=== PATIENT | female | born 1935 | race Caucasian/White ===

== ENCOUNTER 2019-05-02 09:09 | Observation (INO) ==
[2019-05-02] MEDS ORDERED: 0.9 % Sodium Chloride 1,000 ML IVC ONE (09:28)
[2019-05-02] MEDS ORDERED: Orphenadrine 60 MG/2 ML VIAL IM ONE (09:30)
[2019-05-02] MEDS ORDERED: *HR* FentaNYL (PF) 100 MCG/2 ML VIAL IVP ONE (09:30)
--- NOTE | 2019-05-02 09:32 | Emergency Department Note ---
Disposition Clinical Impression: Hypokalemia, Hypomagnesemia, Neck pain Fall Qualifiers: Encounter type: initial encounter Qualified Code(s): W19.XXXA - Unspecified fal l, initial encounter Disposition: Admitted As Inpatient Condition: Good Time of Disposition: 12:15 General Adult HPI - General Chief complaint: ED Fall Stated complaint: Fall, neck pain Time Seen by Provider: 05/02/19 09:16 - History of Present Illness Pain Scale: 7 - Related Data Allergies Allergy/AdvReac Type Severity Reaction Status Date / Time Sulfa (Sulfonamide AdvReac Rash Verified 06/10/15 08:57 Antibiotics) Past Medical History - Past Medical History Medical history: Reports: GERD, hypertension - Social History Smoking Status: Never smoker Smokeless Tobacco Status: Yes Alcohol use: Reports: none Drug use: Reports: none Course Vital Signs Temperature 98.7 F 05/02/19 09:12 Pulse Rate 75 05/02/19 09:12 Respiratory Rate 18 05/02/19 09:12 Blood Pressure 148/74 05/02/19 09:12 O2 Sat by Pulse Oximetry 97 05/02/19 09:12 Temperature 98.7 F 05/02/19 09:55 Pulse Rate 75 05/02/19 09:55 Respiratory Rate 18 05/02/19 09:55 Blood Pressure 148/74 05/02/19 09:55 O2 Sat by Pulse Oximetry 97 05/02/19 09:55 Oxygen Delivery Oxygen Delivery Room Air Medical Decision Making - Lab Data Result diagrams: 05/02/19 09:37 05/02/19 09:37 Lab Results 05/02/19 05/02/19 Range/Units 09:37 09:37 WBC 13.3 H (4.3-11.1) K/mcL RBC 4.18 (3.82-4.97) M/mcL Hgb 12.0 (11.5-15.4) g/dL Hct 36.6 (35.3-44.9) % MCV 87.6 (83.0-100.0) fL MCH 28.7 (28.0-33.3) pg MCHC 32.8 (31.6-35.5) g/dL RDW 12.1 (11.5-14.5) % Plt Count 289 (140-400) K/mcL MPV 10.2 (9.4-12.4) fL Immature Gran % 0.2 (0-4) % Seg Neutrophils % 74.7 % Lymphocytes % 10.0 % Monocytes % 14.5 % Eosinophils % 0.3 % Basophils % 0.3 % Neutrophils # 9.9 H (1.6-8.9) K/mcL Lymphocytes # 1.3 (0.6-4.6) K/mcL Monocytes # 1.9 H (0.0-1.3) K/mcL Eosinophils # 0.0 (0.0-0.6) K/mcL Basophils # 0.0 (0.0-0.2) K/mcL Sodium 132 L (136-145) mEq/L Potassium 2.9 L (3.5-5.1) mEq/L Chloride 94 L (98-107) mEq/L Carbon Dioxide 29 (23-29) mEq/L BUN 11 (8-23) mg/dL Creatinine 0.81 (0.60-1.20) mg/dL Est GFR ( Amer) > 60 (> 60) Est GFR (Non-Af Amer) > 60 (> 60) BUN/Creatinine Ratio 14 (6-26) Glucose 108 H (70-105) mg/dL Calculated Osmolality 274 L (280-300) Calcium 8.7 (8.6-10.3) mg/dL Magnesium 1.5 L (1.6-2.6) mg/dL Total Bilirubin 1.0 (0.3-1.0) mg/dL AST 26 (13-39) Units/L ALT 14 (7-52) Units/L Alkaline Phosphatase 72 (34-104) Units/L Troponin I 0.03 (< 0.04) ng/mL Serum Total Protein 6.8 (6.4-8.9) g/dL Albumin 3.7 (3.5-5.7) g/dL Globulin 3.1 (2.4-3.5) g/dL Albumin/Globulin Ratio 1.2 (1.1-2.2) - Radiology Data Radiology results reviewed: Yes I reviewed the patient's radiology results. Chest X-Ray 05/02/19 09:50 IMPRESSION: Mild left basilar atelectasis. No focal consolidation. D/ / Destiny Briscoe MD / Destiny Briscoe MD Interpreting Provider: Destiny Briscoe MD Head CT 05/02/19 10:42 IMPRESSION: No acute intracranial abnormality. D/ / Javy Jeffries MD / Javy Jeffries MD Interpreting Provider: Javy Jeffries MD Cervical Spine CT 05/02/19 10:44 IMPRESSION: No acute abnormality of the cervical spine. Severe cervical spondylosis. Moderate degenerative spondylolisthesis of C7 on T1. Multiple bilateral foraminal stenoses. 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 D/ / Kendell Arauz MD / Kendell Arauz MD Interpreting Provider: Kendell Arauz MD Thoracic Spine CT 05/02/19 10:50 IMPRESSION: No acute compression fracture. Remote appearing anterior wedge compression fracture T10. Thoracic spondylosis. Grade 1 anterolisthesis C7-T1. RECOMMENDATIONS: If there is further concern for infection, nerve root compression or disc herniation correlation to MRI imaging would be recommended. D/ / 05/02/2019 11:35:29 Javy Jeffries MD / [facility] Interpreting Provider: Javy Jeffries MD Abdomen/Pelvis CT 05/02/19 11:12 IMPRESSION: 1. No acute abdominopelvic abnormality within limitations of a noncontrast study. 2. Gas and stool throughout the colon. Clinical correlation for constipation. 3. No acute osseous abnormality in the lumbar spine. Severe T12-L1 and L5-S1 degenerative disc disease and advanced lower lumbar spine facet joint degenerative changes. 4. Age-indeterminate T10 vertebral body compression deformity. This is new from 06/08/2016 CT. If there is point tenderness at this level, then MRI should be considered. D/ / 05/02/2019 11:47:15 Sher Lr MD / [facility] Interpreting Provider: Sher Lr MD Lumbar Spine CT 05/02/19 11:12 IMPRESSION: 1. No acute abdominopelvic abnormality within limitations of a noncontrast study. 2. Gas and stool throughout the colon. Clinical correlation for constipation. 3. No acute osseous abnormality in the lumbar spine. Severe T12-L1 and L5-S1 degenerative disc disease and advanced lower lumbar spine facet joint degenerative changes. 4. Age-indeterminate T10 vertebral body compression deformity. This is new from 06/08/2016 CT. If there is point tenderness at this level, then MRI should be considered. D/ 05/02/2019 11:47:15 Sher Lr MD / [facility] Interpreting Provider: Sher Lr MD Attestation Statement - Attestation Attestation: Sacha Quintanilla D.O., examined this patient and my medical decision-making was reviewed with the Resident Physician. I agree with the documented findings, disposition and treatment plan as described except to the extent set forth below. This is an 84-year-old female who presents via EMS with a complaint of fall. The patient had a fall yesterday. She tells me that she remembers she is not sure why she fell. She has had diarrhea for 10 days now in total. Has seen her primary care provider who put her on a medication that she is unsure of. She has had no abdominal pain. States that she has been trying to drink fluids to keep up with it that probably is not getting enough. Due to the fall she has had pain in her neck. No other complaints. General: Alert, no acute distress HENT: Normocephalic, Atraumatic Neck: C-spine immobilized. Midline lower cervical spine tenderness. Cardiovascular: Regular rate and rhythm. No appreciable murmurs Respiratory: Lungs CTAB. No wheezing/rhonchi Abdominal: Soft, non tender. No peritoneal findings Extremities: No peripheral edema Neuro: Alert, Mentating appropriately, No focal deficits Skin: Warm, Dry Plan: CT imaging of the head, spine, abdomen and pelvis given her diarrhea. We will check baseline labs due to the amount of her diarrhea as well. ED Procedure Note: EKG interpretation - I agree with the resident physician's documentation and interpretation of the patient's EKG. Sinus rhythm with a rate of 71 beats per minute. Normal axis. QTc 491. Normal R wave progression. No gross ST elevations or depressions. No acute ischemic findings. CT without acute fractures. Abdominal CT without acute findings. Labs demonstrate what is likely been a prolonged course of diarrhea with hypomagnesemia and hypokalemia. Her QTC is 491. Magnesium and potassium were repeated. Patient received IV fluids as well. C-spine cleared. Discussed with patient and agreeable with admission for dehydration, weakness, abnormal electrolytes.
[2019-05-02 10:00] LABS: Basophils % 0.3 %; Eosinophils % 0.3 %; Hematocrit 36.6 % (35.3-44.9); Immature Granulocytes % 0.2 % (0-4); Lymphocytes # 1.3 K/mcL (0.6-4.6); Mean Corpuscular HGB Conc 32.8 g/dL (31.6-35.5); Mean Corpuscular Hemoglobin 28.7 pg (28.0-33.3); Mean Corpuscular Volume 87.6 fL (83.0-100.0); Mean Platelet Volume 10.2 fL (9.4-12.4); Monocytes # 1.9 K/mcL (0.0-1.3); Monocytes % 14.5 %; Neutrophils # 9.9 K/mcL (1.6-8.9); Platelet Count 289 K/mcL (140-400); Red Blood Count 4.18 M/mcL (3.82-4.97); Red Cell Distribution Width 12.1 % (11.5-14.5); Segmented Neutrophils % 74.7 %; White Blood Count 13.3 K/mcL (4.3-11.1)
[2019-05-02 10:12] LABS: Alanine Aminotransferase 14 Units/L (7-52); Albumin 3.7 g/dL (3.5-5.7); Albumin/Globulin Ratio 1.2 (1.1-2.2); Alkaline Phosphatase 72 Units/L (34-104); Aspartate Amino Transferase 26 Units/L (13-39); BUN/Creatinine Ratio 14 (6-26); Blood Urea Nitrogen 11 mg/dL (8-23); Calcium 8.7 mg/dL (8.6-10.3); Carbon Dioxide 29 mEq/L (23-29); Chloride 94 mEq/L (98-107); Globulin 3.1 g/dL (2.4-3.5); Glucose 108 mg/dL (70-105); Magnesium 1.5 mg/dL (1.6-2.6); Osmolality,Calculated 274 (280-300); Potassium 2.9 mEq/L (3.5-5.1); Sodium 132 mEq/L (136-145); Total Protein 6.8 g/dL (6.4-8.9); Troponin I 0.03 ng/mL (< 0.04); eGFR For African Americans > 60 (> 60); eGFR For Non-African Americans > 60 (> 60)
[2019-05-02] MEDS ORDERED: Potassium Chloride Elixir 20 MEQ/15 ML UDC PO ONE (10:15)
--- NOTE | 2019-05-02 10:18 | Emergency Department Note ---
Disposition Clinical Impression: Hypokalemia, Hypomagnesemia, Neck pain Fall Qualifiers: Encounter type: initial encounter Qualified Code(s): W19.XXXA - Unspecified fal l, initial encounter Disposition: Admitted As Inpatient Condition: Good Referrals: Juan Ramsay MD [Primary Care Provider] - Forms: ED Satisfaction Letter Time of Disposition: 12:15 General Adult HPI - General Chief complaint: ED Fall Stated complaint: Fall, neck pain Time Seen by Provider: 05/02/19 09:16 Source: patient, family Mode of arrival: wheelchair Limitations: no limitations Nursing Notes Reviewed: Yes Vital Signs Reviewed: Yes - History of Present Illness HPI Narrative: 84-year-old female with significant past medical history of hypertension presenting to the emergency department chief complaint of fall and neck pain. According to family members at bedside patient fell approximately 2 days ago. They describe a fall as her legs giving out from underneath her. She denies hitting her head that sent has had severe neck and back pain. She denies any numbness or tingling or generalized weakness. She denies any chest pain, shortness of breath or recent fevers. She does state that for the past 10 days she has had loose, watery, foul-smelling stools. She is followed up with her primary care physician who prescribed her an Antidiarrheal medication with minimal to no relief. She states she does have a GI follow-up but it is not for 3 more weeks. Pain Scale: 7 - Related Data Allergies Allergy/AdvReac Type Severity Reaction Status Date / Time Sulfa (Sulfonamide AdvReac Rash Verified 06/10/15 08:57 Antibiotics) All systems ED: reviewed and negative except as stated. Constitutional: Denies: fever Eyes: Reports: as per HPI ENT ED: Reports: as per HPI Cardiovascular: Denies: chest pain Respiratory: Denies: dyspnea Gastrointestinal: Reports: diarrhea Genitourinary: Reports: as per HPI Musculoskeletal: Reports: neck pain Integumentary: Denies: abrasion Neurological: Denies: numbness, paresthesias Psychiatric: Reports: as per HPI Endocrine: Reports: as per HPI Hematological/Lymphatic: Reports: as per HPI Allergic/Immunologic: Reports: as per HPI Past Medical History - Past Medical History Attestation: Yes The following information was validated with the patient. Medical history: Reports: GERD, hypertension - Social History Smoking Status: Never smoker Smokeless Tobacco Status: Yes Alcohol use: Reports: none Drug use: Reports: none Physical Exam - General Limitations: no limitations General appearance: alert, in no apparent distress - Head Head exam: atraumatic, normocephalic, normal inspection - Eye Eye exam: Present: EOMI. Absent: scleral icterus - ENT ENT exam: mucous membranes moist - Neck Neck exam: Present: tenderness (paracervical spinal muscle tenderness, no midline tenderness) - Chest Chest inspection: Present: symmetric chest wall rise. Absent: tenderness - Respiratory Respiratory exam: Present: normal lung sounds bilaterally. Absent: respiratory distress, wheezes - Cardiovascular Cardiovascular exam: Present: regular rate, normal rhythm, normal heart sounds - Abdominal Exam Abdominal exam: Present: soft, Non-Tender. Absent: distention, guarding, rebound - Extremities Exam Extremities exam: Present: full ROM - Back Exam Back exam: Absent: tenderness - Neurological Exam Neurological exam: Present: alert, oriented X3 - Psychiatric Psychiatric exam: Present: normal affect, normal mood - Skin Skin exam: Present: warm Course Course Narrative: 84-year-old female presenting after a fall. In the room she is alert and orient ed 3 and hemodynamically stable. Patient has tenderness to the paracervical spinal musculature but no midline tenderness. No focal neurological deficit. Patient does not remember what was going on when she fell therefore we will perform basic laboratory analysis including a troponin and EKG. Due to patient's severe neck pain we will obtain a CT of the head, cervical, thoracic and lumbar spine. Patient has had diarrhea for greater than 10 days therefore we will also perform a CT of the abdomen and pelvis. Disposition pending. Patient agrees with this plan. - Reevaluation(s) Reevaluation #1: Patient's laboratory analysis significant for leukocytosis, hypokalemia at 2.9 and hypomagnesemia 1.5. We will replete these the IV and replete potassium by mouth. CTs completed does not show any fracture or dislocation. Patient's pain significantly better at this time. Due to patient's electronic abnormalities and generalized weakness we will admit her for further treatment and evaluation. Patient remains alert and oriented 3 and hemodynamically stable. Patient agrees with this plan. Vital Signs Temperature 98.7 F 05/02/19 09:12 Pulse Rate 75 05/02/19 09:12 Respiratory Rate 18 05/02/19 09:12 Blood Pressure 148/74 05/02/19 09:12 O2 Sat by Pulse Oximetry 97 05/02/19 09:12 Temperature 98.7 F 05/02/19 09:55 Pulse Rate 75 05/02/19 09:55 Respiratory Rate 18 05/02/19 09:55 Blood Pressure 148/74 05/02/19 09:55 O2 Sat by Pulse Oximetry 97 05/02/19 09:55 Oxygen Delivery Oxygen Delivery Room Air Medical Decision Making - Lab Data Result diagrams: 05/02/19 09:37 05/02/19 09:37 Lab Results 05/02/19 05/02/19 Range/Units 09:37 09:37 WBC 13.3 H (4.3-11.1) K/mcL RBC 4.18 (3.82-4.97) M/mcL Hgb 12.0 (11.5-15.4) g/dL Hct 36.6 (35.3-44.9) % MCV 87.6 (83.0-100.0) fL MCH 28.7 (28.0-33.3) pg MCHC 32.8 (31.6-35.5) g/dL RDW 12.1 (11.5-14.5) % Plt Count 289 (140-400) K/mcL MPV 10.2 (9.4-12.4) fL Immature Gran % 0.2 (0-4) % Seg Neutrophils % 74.7 % Lymphocytes % 10.0 % Monocytes % 14.5 % Eosinophils % 0.3 % Basophils % 0.3 % Neutrophils # 9.9 H (1.6-8.9) K/mcL Lymphocytes # 1.3 (0.6-4.6) K/mcL Monocytes # 1.9 H (0.0-1.3) K/mcL Eosinophils # 0.0 (0.0-0.6) K/mcL Basophils # 0.0 (0.0-0.2) K/mcL Sodium 132 L (136-145) mEq/L Potassium 2.9 L (3.5-5.1) mEq/L Chloride 94 L (98-107) mEq/L Carbon Dioxide 29 (23-29) mEq/L BUN 11 (8-23) mg/dL Creatinine 0.81 (0.60-1.20) mg/dL Est GFR ( Amer) > 60 (> 60) Est GFR (Non-Af Amer) > 60 (> 60) BUN/Creatinine Ratio 14 (6-26) Glucose 108 H (70-105) mg/dL Calculated Osmolality 274 L (280-300) Calcium 8.7 (8.6-10.3) mg/dL Magnesium 1.5 L (1.6-2.6) mg/dL Total Bilirubin 1.0 (0.3-1.0) mg/dL AST 26 (13-39) Units/L ALT 14 (7-52) Units/L Alkaline Phosphatase 72 (34-104) Units/L Troponin I 0.03 (< 0.04) ng/mL Serum Total Protein 6.8 (6.4-8.9) g/dL Albumin 3.7 (3.5-5.7) g/dL Globulin 3.1 (2.4-3.5) g/dL Albumin/Globulin Ratio 1.2 (1.1-2.2) - EKG Data EKG #1 EKG attestation: Yes I reviewed and interpreted this EKG. EKG results narrative: Sinus rhythm. 71 bpm. OK interval 194, QRS 102, QTC 491. No sign of acute ST segment elevation or ischemia. Compared to previous EKG completed on 04/11/2014 no significant changes noted Attestation Statement - Attestation Attestation: Sacha Quintanilla D.O., examined this patient and my medical decision-making was reviewed with the Resident Physician. I agree with the documented findings, disposition and treatment plan as described except to the extent set forth below.
[2019-05-02] MEDS ORDERED: Ondansetron ODT 4 MG TAB.RAPDIS SL ONE (12:07)
[2019-05-02] MEDS ORDERED: Ondansetron 4 MG/2 ML VIAL IVP PRN (13:44)
[2019-05-02] MEDS ORDERED: Naloxone 0.4 MG/ML INJ IVP PRN (13:44)
[2019-05-02] MEDS ORDERED: Acetaminophen 325 MG TABLET PO PRN (13:44)
[2019-05-02] MEDS ORDERED: *HR* HYDROcodone/Acet 5/325 mg TABLET PO PRN (15:16)
[2019-05-02] MEDS ORDERED: Gadolinium Contrast Agent (WT Based) IV PRN (16:30)
--- NOTE | 2019-05-02 16:31 | Internal Med History&Physical ---
Date of Encounter: 05/02/19 Time of Encounter: 12:15 Internal Medicine - H&P: HPI Admitted From: Emergency Dept Plans for Post Hospital Care: Home History of present illness: Ms. Ken is a 84 year old female with a past medical history significant for GERD hypertension, scoliosis with chronic back pain. She presented to the ED to be evaluated for neck pain status post fall the day prior. Patient cannot recall the full events surrounding her fall but she does deny any prodrome prior to the fall. The fall was not weakness however her boyfriend gentleman by name Garrett who can be reached at [phone] stated that he had a fall and ran to her rescue and found her sitting on the floor on the buttocks he denies the patient having any postictal state. Patient denies also postictal state, loss of bladder or bowel functioning they did state that she thinks she may have slipped and fell landing on her buttocks denying any head trauma. She said that she did not seek care right away however the following morning she started having pain in the bilateral shoulders, and posterior aspect of her neck. She decided to seek care today due to the urging of her children her daughter Santana can be reached at [phone]. She also reports subacute diarrhea for the past 30 days which she reports as profuse watery sometimes foul-smelling stool. She denies any recent use of antibiotic therapy she was seen by [facility] physician who ordered some stool studies. Upon review of her past outpatient records patient had some stool sent for lactoferrin which was positive. She states that she was treated also with antidiarrhea medication which provided minimal relief. She and also a history of prior colonoscopies denies any formal diagnosis of microscopic colitis or celiac disease. Her children were concerned and about patient's gait abnormality which they stated that patient has some shuffling gait but she denies stating stated that she is just concerned about falls as such she she is cautious. The report from the ED physicians there were concerns about history of multiple falls over patient denies this history of such falls. She also is not agreeable to ECF placement for rehabilitation. Work up at the ED included several imaging modalities-CT of the lumbar spine, and thoracic spine without contrast which revealed no acute osseous abnormality but does reveal degenerative disc disease lumbar spine with an age indeterminate T 10 vertebra body compression and a grade 1 anterolisthiasis of C7 on T1, CT of the abdomen and pelvis without contrast was unremarkable except for gas and stool in the colon Past Med Surg Social Fam HX - Past Medical History Medical history: GERD, hypertension Additional medical history: cataracts Psychiatric history: no psych history - Past Surgical History Surgical History: hysterectomy Additional surgical history: back surgery, c-sectionx3, left breast lumpectomy - Social History Smoking Status: Never smoker Smokeless Tobacco Status: Yes Alcohol use: none Drug use: none - Family History Mother Living Status: Hx Family Cardiac Disorders: Yes (HTN) Father Living Status: Hx Family Cardiac Disorders: Yes (HTN) Internal Medicine - H&P: Meds Unable To Obtain [Unable to Obtain] 05/02/19 [History] Allergy/AdvReac Type Severity Reaction Status Date / Time Sulfa (Sulfonamide AdvReac Rash Verified 06/10/15 08:57 Antibiotics) All Systems PM: A 10-system review of systems was performed and is negative for pertinent findi ngs except as documented above in the HPI. Review of systems: GENERAL: She reports fever, chills, fatigue and generalized weakness and malaise but denies night sweats. DERMATOLOGIC: Denies itch, rash or lesions HEENT: Denies headache, blurriness, diplopia or decreased visual acuity, ear pain, tinnitus, rhinorrhea, sinus tenderness or sore throat RESPIRATORY: Denies SOB, cough, hemoptysis or pleuritic chest pain CARDIOVASCULAR: Denies chest pain, LE edema, palpitation or syncope GASTRO INTESTINAL: Denies cramps, nausea/vomiting, but reports subacute diarrhea MUSCULOSKELATAL: Denies muscle pain/weakness, joint tenderness/pain or swelling PSYCH: Denies worsening anxiety, or depression NEURO: Denies vertigo, dizziness, or ataxia GENITURINARY: Denies dysuria, nocturia or urinary incontinence - Constitutional Vitals: Temp Pulse Resp BP Pulse Ox 98.3 F 79 16 134/83 94 05/02/19 13:30 05/02/19 13:30 05/02/19 13:30 05/02/19 13:30 05/02/19 13:30 Exam: GENERAL: Mildly distressed female, A&O x3, pleasant and conversant, son, boyfriend, daughter at the bedside SKIN: [place] warm dry No skin lesions or rashes, non-jaundiced EYES: EOMI, PERRLA, no sclera icterus HENT: Head atraumatic , no facial asymmetry, frontal and maxillary sinus non- tender, normal hearing, oropharynx and mucosa moist and without any exudates NECK: No cervical lymphadenopathy however cervical Paraspinal muscles appears tense midline, neck is extended, thyroid is palpable does not appear enlarged, LUNGS: vesicular breath sounds, clear to auscultation, no wheeze, rhonchi, rales or crackles. Non labored respirations HEART: Normal rate and rhythm, grade 2/6 systolic murmur appreciated ABDOMEN: soft, non-tender, non-distended, bowel sounds x 4 normoactive EXTRMITIES: No LE asymmetry, No LE edema, pedal pulses 1+ and radial pulses 2 + and equal bilaterally NEURO: Speech and comprehension appears intact. PSYCH: Cooperative, non- anxious or irritable, mood and affect is appropriate Internal Med - H&P Results - Labs CBC & Chem 7: 05/02/19 09:37 05/02/19 15:54 Labs: Short CBC 05/02/19 Range/Units 09:37 WBC 13.3 H (4.3-11.1) K/mcL Hgb 12.0 (11.5-15.4) g/dL Hct 36.6 (35.3-44.9) % Plt Count 289 (140-400) K/mcL Neutrophils # 9.9 H (1.6-8.9) K/mcL BMP 05/02/19 09:37 Sodium 132 L Potassium 2.9 L Chloride 94 L Carbon Dioxide 29 BUN 11 Creatinine 0.81 Glucose 108 H Calcium 8.7 Cardiac Enzymes 05/02/19 Range/Units 09:37 Troponin I 0.03 (< 0.04) ng/mL Liver Function 05/02/19 Range/Units 09:37 Total Bilirubin 1.0 (0.3-1.0) mg/dL AST 26 (13-39) Units/L ALT 14 (7-52) Units/L Alkaline Phosphatase 72 (34-104) Units/L Albumin 3.7 (3.5-5.7) g/dL - Impressions ITS Impressions Chest X-Ray 05/02/19 09:50 IMPRESSION: Mild left basilar atelectasis. No focal consolidation. D/ / Destiny Briscoe MD / Destiny Briscoe MD Interpreting Provider: Destiny Briscoe MD Head CT 05/02/19 10:42 IMPRESSION: No acute intracranial abnormality. D/ / Javy Jeffries MD / Javy Jeffries MD Interpreting Provider: Javy Jeffries MD Cervical Spine CT 05/02/19 10:44 IMPRESSION: No acute abnormality of the cervical spine. Severe cervical spondylosis. Moderate degenerative spondylolisthesis of C7 on T1. Multiple bilateral foraminal stenoses. [id number]-cc-taadlvgm central spinal stenosis at C5-C6 and C6-C7. D/ / Kendell Arauz MD / Kendell Arauz MD Interpreting Provider: Kendell Arauz MD Thoracic Spine CT 05/02/19 10:50 IMPRESSION: No acute compression fracture. Remote appearing anterior wedge compression fracture T10. Thoracic spondylosis. Grade 1 anterolisthesis C7-T1. RECOMMENDATIONS: If there is further concern for infection, nerve root compression or disc herniation correlation to MRI imaging would be recommended. D/ / 05/02/2019 11:35:29 Javy Jeffries MD / ian Interpreting Provider: Javy Jeffries MD Abdomen/Pelvis CT 05/02/19 11:12 IMPRESSION: 1. No acute abdominopelvic abnormality within limitations of a noncontrast study. 2. Gas and stool throughout the colon. Clinical correlation for constipation. 3. No acute osseous abnormality in the lumbar spine. Severe T12-L1 and L5-S1 degenerative disc disease and advanced lower lumbar spine facet joint degenerative changes. 4. Age-indeterminate T10 vertebral body compression deformity. This is new from 06/08/2016 CT. If there is point tenderness at this level, then MRI should be considered. D/ /02/2019 11:47:15 Sher Lr MD / karin Interpreting Provider: Sher Lr MD Lumbar Spine CT 05/02/19 11:12 IMPRESSION: 1. No acute abdominopelvic abnormality within limitations of a noncontrast study. 2. Gas and stool throughout the colon. Clinical correlation for constipation. 3. No acute osseous abnormality in the lumbar spine. Severe T12-L1 and L5-S1 degenerative disc disease and advanced lower lumbar spine facet joint degenerative changes. 4. Age-indeterminate T10 vertebral body compression deformity. This is new from 06/08/2016 CT. If there is point tenderness at this level, then MRI should be considered. D/ /02/2019 11:47:15 Sher Lr MD / karin Interpreting Provider: Sher Lr MD - Assessment and Plan (1) Fall Current Visit: Yes Status: Acute Assessment and plan: Patient denies any prodrome before the fall however based on her imaging modality that revealed degenerative disc disease of the thoracic and lumbar spine this could have been the underlying etiology for falls. She denies ataxic gait, however her family reports patients having some gait abnormalities will place fall protocol and PT OT consult Qualifiers: Encounter type: initial encounter Qualified Code(s): W19.XXXA - Unspecified fall, initial encounter (2) Neck pain Current Visit: Yes Status: Acute Assessment and plan: patient continue to report worsening neck pain she denies any head injury after her fall, CT of the cervical spine and head although revealed no fracture but does reveal extensive degenerative disc disease of the cervical spine with cervical spondylosis and C7 on T1 anterior lithiasis as such MRI of his cervical and thoracic spine ordered stat discussed with patient that based on this finding she might need transfer to a tertiary center capable of neurosurgery (3) Leukocytosis Current Visit: Yes Status: Acute Assessment and plan: Mild leukocytosis which could be reactive. She is Afebrile but complaining of chills we will monitor clinically correlate Qualifiers: Leukocytosis type: unspecified Qualified Code(s): D72.829 - Elevated white blood cell count, unspecified (4) Hyponatremia Current Visit: Yes Status: Acute Assessment and plan: She does report poor oral intake sodium is 132 she is euvolemic will monitor BMP in the morning (5) Diarrhea Current Visit: Yes Status: Acute Assessment and plan: Patient states she has been having diarrhea for more than 3 weeks refractory to antidiarrhea medications she denies any history of recent antibiotic therapy. She saw PCP who ordered some diagnostic workup per outpatient labs appears patient had lactoferrin was positive which itself is reflective of colonic inflammation. ED staff already ordered C. difficile antigen which is pending however patient is yets to have a bowel movement, CT abdomen and pelvis does reveal gas and stool in the entire colon. Abdominal exam was benign nontender nondistended she does have associated electrolytes abnormalities-low potassium and low magnesium. She endorses history of prior colonoscopy but none recently she denies any formal diagnosis of microscopic colitis or celiac disease Qualifiers: Diarrhea type: unspecified type Qualified Code(s): R19.7 - Diarrhea, unspecified (6) Hypokalemia Current Visit: Yes Status: Acute Assessment and plan: Was supplemented orally and intravenously. Potassium is now 2.9-3.5 (7) Hypomagnesemia Current Visit: Yes Status: Acute Assessment and plan: Magnesium on admission 1.5 secondary to diarrhea she was supplemented intravenously (8) DVT prophylaxis Current Visit: Yes Status: Acute Assessment and plan: We will place on heparin per protocol (9) Degenerative disc disease at L5-S1 level Current Visit: Yes Status: Acute Assessment and plan: Patient will need outpatient workup and follow-up this could be contributing to her gait abnormality she denies any saddle anesthesia or loss of bowel function (10) Degenerative disc disease, thoracic Current Visit: Yes Status: Acute Assessment and plan: MRI of the thoracic spine pending (11) Wedge compression fracture of tenth thoracic vertebra Current Visit: Yes Status: Acute Assessment and plan: This was noted on the CT imaging of the thoracic spine, patient's only complaint is acute neck pain. She endorses a history of chronic back pain MRI of the thor acic spine has been ordered and pending. She reports having had several DEXA scan was told she has osteopenia with this compression fracture qualifies for osteoporosis diagnosis she will need outpatient follow-up with her primary care physician Qualifiers: Encounter type: initial encounter Fracture type: closed Qualified Code( s): S22.070A - Wedge compression fracture of T9-T10 vertebra, initial encounter for closed fracture - Time Spent With Patient Total time spent is greater than 50% in coordination of care (as documented) at patient's floor/unit and/or counseling patient:
[2019-05-02 17:49] LABS: Bilirubin,Urine Negative (Negative); Blood,Urine Trace (Negative); Clarity,Urine Clear (Clear); Color,Urine Yellow (Yellow); Glucose,Urine (UA) Normal (Normal); Ketones,Urine Negative (Negative); Leukocyte Esterase,Urine Large (Negative); Nitrite,Urine Negative (Negative); Protein,Urine Trace mg/dL (Neg-Trace); Specific Gravity,Urine 1.012 (1.010-1.025); Urobilinogen,Urine Normal (Normal)
[2019-05-02 18:08] LABS: Squamous Epithelial Cell,Urine Few per lpf (None-Few)
[2019-05-02 18:09] LABS: Bacteria,Urine Few per hpf (None-Few); RBC,Urine 0-3 per hpf (0-3); WBC,Urine 30-50 per hpf (0-3)
[2019-05-02 18:10] LABS: Transitional Epi Cells,Urine Few per hpf (None-Few)
[2019-05-02] MEDS: *HR* Heparin 5,000 UNIT/ML VIAL SQ SCH (21:06)
[2019-05-03 02:07] LABS: Basophils # 0.1 K/mcL (0.0-0.2); Basophils % 0.5 %; Eosinophils # 0.1 K/mcL (0.0-0.6); Eosinophils % 0.7 %; Hematocrit 31.6 % (35.3-44.9); Hemoglobin 10.6 g/dL (11.5-15.4); Immature Granulocytes % 0.6 % (0-4); Lymphocytes # 1.5 K/mcL (0.6-4.6); Lymphocytes % 14.8 %; Mean Corpuscular HGB Conc 33.5 g/dL (31.6-35.5); Mean Corpuscular Volume 86.3 fL (83.0-100.0); Mean Platelet Volume 10.2 fL (9.4-12.4); Monocytes # 1.6 K/mcL (0.0-1.3); Monocytes % 15.3 %; Neutrophils # 7.1 K/mcL (1.6-8.9); Platelet Count 260 K/mcL (140-400); Red Blood Count 3.66 M/mcL (3.82-4.97); Red Cell Distribution Width 12.3 % (11.5-14.5); Segmented Neutrophils % 68.1 %; White Blood Count 10.4 K/mcL (4.3-11.1)
[2019-05-03 02:29] LABS: BUN/Creatinine Ratio 14 (6-26); Blood Urea Nitrogen 9 mg/dL (8-23); Carbon Dioxide 26 mEq/L (23-29); Chloride 100 mEq/L (98-107); Glucose 105 mg/dL (70-105); Magnesium 1.7 mg/dL (1.6-2.6); Osmolality,Calculated 275 (280-300); Potassium 3.2 mEq/L (3.5-5.1); Sodium 133 mEq/L (136-145); eGFR For African Americans > 60 (> 60); eGFR For Non-African Americans > 60 (> 60)
[2019-05-03] MEDS: *HR* Heparin 5,000 UNIT/ML VIAL SQ SCH ×2 (06:02→13:48)
--- NOTE | 2019-05-03 10:01 | Electrocardiograph Report ---
[place] [facility] Test Date: 2019-05-02 Pat Name: Belgica Ken Department: EXAM11 Room: 3B32 Gender: F Fire [employer] Worker: : [id number] Requested By: Aleyda Miller Order Number: [id number] Reading MD: Fabián Sargent Measurements Intervals [place] Rate: 71 P: 64 AK: 194 QRS: -4 QRSD: 102 T: 27 QT: 451 QTc: 491 Interpretive Statements Sinus rhythm Borderline prolonged QT interval Electronically Signed On 05-03-2019 9:59:10 EDT by Fabián Sargent
[2019-05-03 11:39] VITALS: BP 151/78
[2019-05-03] MEDS ORDERED: *HR* Acetaminophen w/Cod 300-30 mg 1 TAB TABLET PO PRN (12:55)
[2019-05-03] MEDS ORDERED: hydroCHLOROthiazide 25 MG TABLET PO SCH (13:00)
--- NOTE | 2019-05-03 15:09 | Discharge Summary ---
- NOTES TO OUTPATIENT PROVIDER Notes to Outpatient Provider: f/u with PCP in one week. f/u with Ortho Dr. Grimes in 2 weeks. Please continue wearing Neck collar all the time, until you see Dr. Grimes. Orders not resulted at time of discharge: Pending orders 05/02/19 17:30 Culture,Urine [RM] Stat Date of Encounter: 05/03/19 Time of Encounter: 15:07 - Discharge Diagnosis (1) Fall Priority: Primary Status: Acute Qualifiers: Encounter type: initial encounter Qualified Code(s): W19.XXXA - Unspecified fall, initial encounter (2) Neck pain Priority: Primary Status: Acute (3) Hyponatremia Priority: Secondary Status: Acute (4) Diarrhea Priority: Secondary Status: Chronic Qualifiers: Diarrhea type: unspecified type Qualified Code(s): R19.7 - Diarrhea, unspecified (5) Hypokalemia Priority: Secondary Status: Acute (6) Degenerative disc disease at L5-S1 level Priority: Secondary Status: Acute (7) Degenerative disc disease, thoracic Priority: Secondary Status: Acute (8) Wedge compression fracture of tenth thoracic vertebra Priority: Secondary Status: Acute Qualifiers: Encounter type: initial encounter Fracture type: closed Qualified Code(s): S22.070A - Wedge compression fracture of T9-T10 vertebra, initial encounter for closed fracture (9) DVT prophylaxis Priority: Secondary Status: Acute Hospital course: Ms. Ken is a 84 year old female with a past medical history significant for GERD, hypertension, scoliosis with chronic back pain pt presented to the ED to be evaluated for neck pain status post fall on Monday. Patient cannot recall the full events surrounding her fall but she does deny any prodrome prior to the fall. Pt stated she fell on her lower back / buttocks, but denied any head trauma / neck injury. However from last 2-3 days her Neck pain started worsening, pain started radiating to her b/l shoulder too. Work up in the ED -CT of the lumbar spine, and thoracic spine without contrast which revealed no acute osseous abnormality but does reveal degenerative disc disease lumbar spine with an age indeterminate T 10 vertebra body compression and a grade 1 anterolisthiasis of C7 on T1, CT of the abdomen and pelvis without contrast was unremarkable except for gas and stool in the colon. She was admitted in the hospital and started her on symptomatic and supportive care. She did go for cervical spine and thoracic MRI. Her thoracic MRI showed Subacute to chronic compression fracture at the superior endplate of T10 with 30% height loss. Her Cervical spine MRI showed prevertebral edema extending from the clivus down to the level of C6, concerning for anterior longitudinal ligamentous injury. There is edema in the paraspinal musculature along the cervical spine, concerning for muscular injury/strain. There are areas of cord edema at C3-C4, C4-C5, and C5-C6, compatible with cord contusion. Talked to spine surgery Dr. Grimes who recommend Neck collar placement and follow up with him as an out pt. Will d/c her home in stable condition today with home health services. - Time Spent with Patient Total time spent providing and/or coordinating discharge services: - Discharge Medications Prescriptions: No Action Oxybutynin Chloride [Oxybutynin Chloride ER] 5 mg PO QAM Atenolol [Tenormin] 50 mg PO QAM Omeprazole [PriLOSEC] 40 mg PO QAM Acetaminophen w/Cod 300-30 mg [Tylenol w/Codeine #3] 1 tab PO BID PRN PRN Reason: Pain Loperamide [Imodium] 2 mg PO QID PRN PRN Reason: Diarrhea hydroCHLOROthiazide [Hydrochlorothiazide] 25 mg PO QAM Home Medications: Acetaminophen w/Cod 300-30 mg [Tylenol w/Codeine #3] 1 tab PO BID PRN 05/02/19 [History] Atenolol [Tenormin] 50 mg PO QAM 05/02/19 [History] Loperamide [Imodium] 2 mg PO QID PRN 05/02/19 [History] Omeprazole [PriLOSEC] 40 mg PO QAM 05/02/19 [History] Oxybutynin Chloride [Oxybutynin Chloride ER] 5 mg PO QAM 05/02/19 [History] hydroCHLOROthiazide [Hydrochlorothiazide] 25 mg PO QAM 05/02/19 [History] Cyclobenzaprine HCl 5 mg PO BID PRN #20 tablet 05/03/19 [Rx] Allergies/Adverse Reactions: Allergy/AdvReac Type Severity Reaction Status Date / Time Sulfa (Sulfonamide AdvReac Rash, Verified 05/02/19 21:14 Antibiotics) NAUSEA Date of admission: 05/02/19 12:16 Primary care physician: Juan Ramsay MD Consults: 05/03/19 10:52 Consult to Orthopedic Surgery [CONS] Routine Consulting Provider: [facility] Reason for Consult: Cervical spine injury with fall. Time Notified: 10:53 Call Completed: Yes - Constitutional Vitals: Temp Pulse Resp BP Pulse Ox 97.9 F 79 16 151/78 96 05/03/19 11:36 05/03/19 11:36 05/03/19 11:36 05/03/19 11:36 05/03/19 11:36 General appearance: Present: cooperative, A&O X 3, no acute distress, answers questions appropriately Exam: a - Head Head exam: Present: atraumatic, normal inspection - Neck Additional comments: No tenderness noticed. No visible injuries noticed. No bruises noticed - Respiratory Respiratory exam: Present: decreased breath sounds. Absent: rales, respiratory distress, rhonchi, wheezes - Cardiovascular Cardiovascular exam: Present: RRR, +S1, +S2. Absent: tachycardia - GI/Abdominal GI/Abdominal exam: Present: normal bowel sounds, soft. Absent: rebound, rigid, tenderness - Extremities Exam Extremities exam: Present: normal inspection. Absent: calf tenderness, pedal edema, tenderness - Back Exam Back exam: Absent: CVA tenderness (L), CVA tenderness (R) - Neurological Exam Neurological exam: Present: alert, oriented X3, no focal deficits, strengths equal and symetr throughout. Absent: pronater drift, facial droop, speech deficit - Psychiatric Psychiatric exam: Present: normal affect, normal mood - Patient Status Disposition: Home Health Service Condition: Good - Discharge Instructions Follow Up With: Juan Ramsay MD [Primary Care Provider] - (APPOINTMENT HAS BEEN REQUESTED.) Bud Grimes Jr, MD [Partnered Physician] - - Diet and Activity Activity: as per physical therapy, increase activity as tolerated Diet: low salt diet
--- NOTE | 2019-05-03 15:22 | Physician Discharge Referral ---
Home Health/Hosp Referral Info Transfer to: Home Health Provider in Charge Post Discharge: PCP - Diagnosis (1) Fall Status: Acute (2) Neck pain Status: Acute (3) Hyponatremia Status: Acute (4) Diarrhea Status: Chronic (5) Hypokalemia Status: Acute (6) Degenerative disc disease at L5-S1 level Status: Acute (7) Degenerative disc disease, thoracic Status: Acute (8) Wedge compression fracture of tenth thoracic vertebra Status: Acute (9) DVT prophylaxis Status: Acute - Respiratory Orders Smoking Cessation: Smoking cessation has been advised. For more information, call the [place] Tobacco Quit Line at 9-091-XVBS-NOW. - Services Needed Following services are medically necessary services: Nursing, Physical Therapy, Occupational Therapy - Transfer Medications Prescriptions: Cyclobenzaprine HCl 5 mg PO BID PRN #20 tablet PRN Reason: Spasms Prescription Printed Home Medications: Acetaminophen w/Cod 300-30 mg [Tylenol w/Codeine #3] 1 tab PO BID PRN 05/02/19 [History] Atenolol [Tenormin] 50 mg PO QAM 05/02/19 [History] Loperamide [Imodium] 2 mg PO QID PRN 05/02/19 [History] Omeprazole [PriLOSEC] 40 mg PO QAM 05/02/19 [History] Oxybutynin Chloride [Oxybutynin Chloride ER] 5 mg PO QAM 05/02/19 [History] hydroCHLOROthiazide [Hydrochlorothiazide] 25 mg PO QAM 05/02/19 [History] Cyclobenzaprine HCl 5 mg PO BID PRN #20 tablet 05/03/19 [Rx] Allergies/Adverse Reactions: Allergy/AdvReac Type Severity Reaction Status Date / Time Sulfa (Sulfonamide AdvReac Rash, Verified 05/02/19 21:14 Antibiotics) NAUSEA Certification: Further, I certify that my clinical findings support that this patient is homebound (i.e. absences from home require considerable and taxing effort and are for medical reasons or rastafari services or infrequently or short duration when for other reasons) because: Homebound Reason: Patient requires assistance of a person or device to safely leave home Attestation: My signature below is to certify that this patient is under my care and that I, or nurse practitioner, or a physician's industrial hire sales assistant working with me, has a [id number] encounter with this patient.
[2019-05-03] MEDS ORDERED: FLU Vac QV 19-20 (6Month+)/PF 0.5 ML SYRINGE IM ONE (15:59)
--- NOTE | 2019-05-03 16:35 | Spine Progress Note ---
Date of Encounter: 05/03/19 Time of Encounter: 16:32 - Assessment and Plan (1) Cervical spondylosis Current Visit: Yes Status: Chronic On exam she is awake and alert in mild distress secondary to neck pain. Family members are present. Afebrile vital signs stable. She has no tenderness to palpation of the cervical spine over the spinous processes. She has mild to moderate tenderness to palpation of the upper trapezial musculature bilaterally. She is neurovascularly intact with regard to bilateral upper and lower extremities. She has a negative Soniya sign. She has no clonus. CT scan of the cervical spine reveals multilevel severe degenerative changes. There is a cyst and the odontoid which is likely degenerative in nature. There is an anterolisthesis C7-T1. There is multilevel foraminal stenosis and some central stenosis seen. There is no evidence of acute fracture. MRI is a poor quality study. A reveals multilevel severe degenerative changes. There is a question of injury to the anterior longitudinal ligament but I favor multilevel degenerative changes from anterior spurring and ossification of the ligament. There is some soft tissue edema posteriorly consistent with movement artifact versus edematous signal. There is multilevel foraminal stenosis seen. I see no myelomalacia within the cord. Impression: 1) cervical spondylosis 2) acute cervical strain/contusion 3) cervical stenosis Plan: I see no evidence of fracture or spinal instability. She can wear a cervical collar which is been provided for copper with ambulation and activities. She does not have to sleep in the collar. The collar is not huang atory either. She can take analgesics and anti-inflammatories for her comfort needs. She will follow-up in my clinic in one month to get reevaluated into evaluate her clinical progress. (2) Cervical stenosis of spinal canal Current Visit: Yes Status: Chronic (3) Cervical strain Current Visit: Yes Status: Acute Qualifiers: Encounter type: initial encounter Qualified Code(s): S16.1XXA - Strain of muscle, fascia and tendon at neck level, initial encounter Subjective Principal diagnosis: cervical strain, cervical spondylosis, cervical stenosis Interval history: Mispronounce an 84-year-old woman with a history of recent fall. She complains of neck and para trapezial pain since that fall. She rates the pain a 4 on a pain scale. She denies neurologic abnormalities or radicular symptoms. She denies any bowel bladder symptomatology. Her pain is reasonably controlled on analgesics. Objective Vital signs: Vital Signs Temp Pulse Resp BP Pulse Ox 05/03/19 11:36 97.9 F 79 16 151/78 96 05/03/19 08:03 98 F 59 131/72 94 05/03/19 04:03 98.4 F 88 16 152/70 93 05/03/19 00:14 100.5 F H 82 16 104/62 95 Intake and Output 05/03/19 05/03/19 05/03/19 07:59 15:59 23:59 Other: Stool Size Moderate Stool Consistency loose # Voids 1 # Bowel Movements 2 Weight 58 kg Patient Weight 05/03/19 23:59 Weight 58 kg - Labs CBC & BMP: 05/03/19 01:51 05/03/19 01:51 Labs: Abnormal lab results WBC 13.3 K/mcL (4.3-11.1) H 05/02/19 09:37 RBC 3.66 M/mcL (3.82-4.97) L 05/03/19 01:51 Hgb 10.6 g/dL (11.5-15.4) L 05/03/19 01:51 Hct 31.6 % (35.3-44.9) L 05/03/19 01:51 Neutrophils # 9.9 K/mcL (1.6-8.9) H 05/02/19 09:37 Monocytes # 1.6 K/mcL (0.0-1.3) H 05/03/19 01:51 Sodium 133 mEq/L (136-145) L 05/03/19 01:51 Potassium 3.2 mEq/L (3.5-5.1) L 05/03/19 01:51 Chloride 94 mEq/L (98-107) L 05/02/19 09:37 Glucose 108 mg/dL (70-105) H 05/02/19 09:37 Calculated Osmolality 275 (280-300) L 05/03/19 01:51 Calcium 8.0 mg/dL (8.6-10.3) L 05/03/19 01:51 Magnesium 1.5 mg/dL (1.6-2.6) L 05/02/19 09:37 Urine Blood Trace (Negative) H 05/02/19 17:30 Ur Leukocyte Esterase Large (Negative) H 05/02/19 17:30 Urine Microscopic WBC 30-50 per hpf (0-3) H 05/02/19 17:30 Ur Culture Indicated? YES (NO) A 05/02/19 17:30 Consult Discharge Plan - Plan Additional Instructions: Home Health has been set up through [facility]. They will contact you with a date and time to complete admission. If you need to contact them please call #[phone] or #[phone]. Referrals: Bud Grimes Jr, MD [Partnered Physician] - Juan Ramsay MD [Primary Care Provider] - (APPOINTMENT HAS BEEN REQUESTED.) Prescriptions: Cyclobenzaprine HCl 5 mg PO BID PRN #20 tablet PRN Reason: Spasms Prescription Printed
== END 2019-05-03 17:40 | disposition home health service (06) ==
LOC: EMEROOARM 09:09 → 3BNU 09:09
PROVIDERS: ADMIT Pharmacist; ATTEND Pharmacist

== ENCOUNTER 2020-01-07 06:07 | Inpatient (IN) ==
[~2020-01-07 06:07] MED LIST: Vancomycin 1,000 MG, Sodium Chloride IRRigation 1,000 ML IR ONE
[2020-01-07] MEDS ORDERED: CeFAZolin Syr 2,000MG/20 ML 2,000 MG/20 ML SYRINGE IVPB ONE (06:34)
[2020-01-07] MEDS ORDERED: Ringers Solution, Lactated 1,000 ML IVC SCH (06:45)
[2020-01-07] MEDS ORDERED: Acetaminophen IV 1,000 MG/100 ML INFUS..BTL IVPB ONE (07:00)
[2020-01-07] MEDS ORDERED: Famotidine 20 MG/2 ML VIAL IVP ONE (07:00)
[2020-01-07] MEDS ORDERED: *HR* Propofol 200 MG/20 ML VIAL IVP ONE (07:01)
[2020-01-07] MEDS ORDERED: *HR* FentaNYL (PF) 100 MCG/2 ML VIAL ONE ×2 (07:01→08:47)
[2020-01-07] MEDS ORDERED: *HR* Phenylephrine 10 MG/ML VIAL ONE (07:07)
[2020-01-07] MEDS ORDERED: *HR* Rocuronium Bromide 50 MG/5 ML VIAL ONE (07:07)
[2020-01-07] MEDS ORDERED: Ondansetron 4 MG/2 ML VIAL ONE (07:07)
[2020-01-07] MEDS ORDERED: Dexamethasone 4 MG/ML VIAL ONE (07:07)
[2020-01-07] MEDS ORDERED: Lidocaine HCL 4 ML Topical Solution (Laryng-O-Jet Kit Sterile Pak) TP ONE (07:07)
[2020-01-07] MEDS ORDERED: *HR* Labetalol 20 MG/4 ML SYRINGE IVP ONE (07:07)
[2020-01-07] MEDS ORDERED: Lidocaine -MPF 2% 2 ML VIAL ONE ×2 (07:07→07:48)
[2020-01-07] MEDS ORDERED: NiCARdipine 2.5 MG/10 ML Syringe IVPB ONE (07:12)
[2020-01-07] MEDS ORDERED: Protamine Sulfate 50 MG/5 ML VIAL IVP ONE (07:15)
[2020-01-07] MEDS ORDERED: Heparin 1,000 UNITS/500 mL 500 ML ONE ×3 (07:15→07:38)
[2020-01-07] MEDS ORDERED: Bupivacaine-MPF 0.25% 10 ML VIAL ONE (07:15)
[2020-01-07] MEDS ORDERED: *HR* Heparin 5,000 UNIT/ML VIAL ONE ×2 (07:39→08:52)
[2020-01-07] MEDS ORDERED: EPHEDrine 50 MG/ML VIAL ONE (08:19)
[2020-01-07] MEDS ORDERED: *HR* Labetalol 20 MG/4 ML SYRINGE IVP PRN ×2 (09:17→12:24)
[2020-01-07] MEDS ORDERED: Morphine Sulfate 2 MG/ML SYRINGE IVP PRN (09:17)
[2020-01-07] MEDS ORDERED: Ondansetron 4 MG/2 ML VIAL IVP ONE (09:17)
[2020-01-07] MEDS ORDERED: Acetaminophen 325 MG TABLET PO PRN (12:24)
[2020-01-07] MEDS ORDERED: *HR* OxyCODONE Immed Rel 5 MG TABLET PO PRN ×2 (12:24)
[2020-01-07] MEDS ORDERED: *HR* HYDROcodone/Acet 5/325 mg TABLET PO PRN ×2 (12:24)
[2020-01-07] MEDS ORDERED: 0.9 % Sodium Chloride 1,000 ML IVC SCH (12:24)
[2020-01-07] MEDS ORDERED: Naloxone 0.4 MG/ML INJ IVP PRN (12:24)
[2020-01-07] MEDS ORDERED: Ondansetron 4 MG/2 ML VIAL IVP PRN (12:24)
[2020-01-07] MEDS: *HR* Metoprolol 5 MG/5 ML VIAL IVP SCH ×2 (12:56→17:48)
[2020-01-07] MEDS ORDERED: 0.9 % Sodium Chloride 500 ML IVC SCH (13:00)
[2020-01-07] MEDS: Acetaminophen 325 MG TABLET PO PRN (13:03)
[2020-01-07] MEDS: CeFAZolin 2 GM/120 ML BAG IVPB SCH (15:07)
[2020-01-08] MEDS: CeFAZolin 2 GM/120 ML BAG IVPB SCH (00:38)
[2020-01-08] MEDS: *HR* Metoprolol 5 MG/5 ML VIAL IVP SCH ×2 (00:38→06:04)
[2020-01-08] MEDS: Acetaminophen 325 MG TABLET PO PRN (03:27)
[2020-01-08] MEDS ORDERED: *HR* Heparin 5,000 UNIT/ML VIAL SQ SCH ×2 (06:00)
[2020-01-08 07:07] VITALS: BP 111/50
[2020-01-08] MEDS ORDERED: Lactobacillus 1 EACH CAP.SPRINK PO SCH (09:00)
[2020-01-08] MEDS ORDERED: Loratadine 10 MG TABLET PO SCH (09:00)
[2020-01-08] MEDS ORDERED: atenoloL 50 MG TABLET PO SCH (09:00)
[2020-01-08] MEDS ORDERED: hydroCHLOROthiazide 25 MG TABLET PO SCH (09:00)
== END 2020-01-08 10:39 | disposition home or self-care (01) | DRG 39 ==
LOC: SAMDAY 06:07 → 2NNU 12:22
PROVIDERS: ADMIT Surgery; ATTEND Surgery

== ENCOUNTER 2020-02-08 21:42 | Inpatient (IN) ==
[2020-02-08 22:29] LABS: Basophils % 0.3 %; Eosinophils # 0.7 K/mcL (0.0-0.6); Eosinophils % 5.3 %; Hematocrit 40.4 % (35.3-44.9); Hemoglobin 13.1 g/dL (11.5-15.4); Immature Granulocytes % 0.2 % (0-4); Lymphocytes % 16.2 %; Mean Corpuscular HGB Conc 32.4 g/dL (31.6-35.5); Mean Corpuscular Hemoglobin 28.7 pg (28.0-33.3); Mean Corpuscular Volume 88.6 fL (83.0-100.0); Mean Platelet Volume 10.8 fL (9.4-12.4); Monocytes # 1.4 K/mcL (0.0-1.3); Neutrophils # 8.2 K/mcL (1.6-8.9); Platelet Count 318 K/mcL (140-400); Red Blood Count 4.56 M/mcL (3.82-4.97); Red Cell Distribution Width 13.6 % (11.5-14.5); White Blood Count 12.3 K/mcL (4.3-11.1)
[2020-02-08 22:43] LABS: BUN/Creatinine Ratio 21 (6-26); Blood Urea Nitrogen 18 mg/dL (8-23); Calcium 9.2 mg/dL (8.6-10.3); Carbon Dioxide 21 mEq/L (23-29); Chloride 96 mEq/L (98-107); Glucose 115 mg/dL (70-105); Osmolality,Calculated 269 (280-300); Potassium 3.4 mEq/L (3.5-5.1); Sodium 128 mEq/L (136-145); eGFR For African Americans > 60 (> 60); eGFR For Non-African Americans > 60 (> 60)
[2020-02-08 22:43] LABS: Phosphorous 3.3 mg/dL (2.7-4.5)
[2020-02-08] MEDS ORDERED: Magnesium Oxide 400 MG TABLET PO ONE (22:49)
[2020-02-08 22:50] LABS: Troponin I 0.12 ng/mL (< 0.04)
[2020-02-08 22:57] LABS: Thyroid Stimulating Hormone 4.416 mcIU/mL (0.340-5.600)
[2020-02-08] MEDS ORDERED: hydrALAZINE 10 MG TABLET PO ONE (23:31)
[2020-02-09] MEDS ORDERED: Naloxone 0.4 MG/ML INJ IVP PRN (01:23)
[2020-02-09] MEDS ORDERED: 0.9 % Sodium Chloride 1,000 ML IVC SCH (01:30)
[2020-02-09] MEDS ORDERED: Perflutren Lipid Microsphere 1.3 ML in 0.9 % Sodium Chloride 8.7 ML IVP ONE (02:31)
[2020-02-09 04:08] LABS: Activated Partial Thrombo Time 22.3 Seconds (26.0-36.0); Basophils # 0.1 K/mcL (0.0-0.2); Basophils % 0.6 %; Eosinophils # 0.7 K/mcL (0.0-0.6); Eosinophils % 6.1 %; Hematocrit 40.9 % (35.3-44.9); Hemoglobin 13.6 g/dL (11.5-15.4); Immature Granulocytes % 0.4 % (0-4); Lymphocytes # 2.1 K/mcL (0.6-4.6); Lymphocytes % 19.6 %; Mean Corpuscular HGB Conc 33.3 g/dL (31.6-35.5); Mean Corpuscular Hemoglobin 29.1 pg (28.0-33.3); Mean Corpuscular Volume 87.6 fL (83.0-100.0); Mean Platelet Volume 11.1 fL (9.4-12.4); Monocytes # 1.2 K/mcL (0.0-1.3); Neutrophils # 6.7 K/mcL (1.6-8.9); Platelet Count 186 K/mcL (140-400); Prothrombin Time 11.6 Seconds (9.4-12.1); Red Blood Count 4.67 M/mcL (3.82-4.97); Red Cell Distribution Width 13.5 % (11.5-14.5); Segmented Neutrophils % 62.3 %; White Blood Count 10.8 K/mcL (4.3-11.1)
[2020-02-09 04:22] LABS: Alanine Aminotransferase 48 Units/L (7-52); Albumin 3.7 g/dL (3.5-5.7); Albumin/Globulin Ratio 1.3 (1.1-2.2); Alkaline Phosphatase 115 Units/L (34-104); Aspartate Amino Transferase 50 Units/L (13-39); BUN/Creatinine Ratio 22 (6-26); Bilirubin,Total 0.7 mg/dL (0.3-1.0); Blood Urea Nitrogen 16 mg/dL (8-23); Calcium 8.9 mg/dL (8.6-10.3); Carbon Dioxide 22 mEq/L (23-29); Chloride 98 mEq/L (98-107); Globulin 2.8 g/dL (2.4-3.5); Glucose 99 mg/dL (70-105); Osmolality,Calculated 269 (280-300); Potassium 3.3 mEq/L (3.5-5.1); Sodium 129 mEq/L (136-145); Total Protein 6.5 g/dL (6.4-8.9); eGFR For African Americans > 60 (> 60); eGFR For Non-African Americans > 60 (> 60)
[2020-02-09 04:33] LABS: Troponin I 0.13 ng/mL (< 0.04)
[2020-02-09] MEDS ORDERED: Aspirin 325 MG TABLET PO ONE (06:52)
[2020-02-09] MEDS ORDERED: Potassium Chloride Elixir 20 MEQ/15 ML UDC PO ONE (07:46)
[2020-02-09] MEDS ORDERED: *HR* Atropine Sulfate 1 MG/10 ML SYRINGE ONE (07:56)
[2020-02-09] MEDS ORDERED: hydroCHLOROthiazide 25 MG TABLET PO SCH ×2 (09:00)
[2020-02-09] MEDS ORDERED: Furosemide 20 MG/2 ML VIAL IVP ONE (11:19)
[2020-02-09] MEDS: *HR* Heparin 5,000 UNIT/ML VIAL SQ SCH (17:51)
[2020-02-09 20:08] LABS: Calcium 8.5 mg/dL (8.6-10.3); Magnesium 1.6 mg/dL (1.6-2.6); Potassium 4.4 mEq/L (3.5-5.1)
[2020-02-10 01:05] LABS: Calcium 8.6 mg/dL (8.6-10.3)
[2020-02-10 01:06] LABS: Hematocrit 38.4 % (35.3-44.9); Hemoglobin 12.7 g/dL (11.5-15.4); Mean Corpuscular HGB Conc 33.1 g/dL (31.6-35.5); Mean Corpuscular Hemoglobin 29.6 pg (28.0-33.3); Mean Corpuscular Volume 89.5 fL (83.0-100.0); Mean Platelet Volume 10.7 fL (9.4-12.4); Platelet Count 280 K/mcL (140-400); Red Blood Count 4.29 M/mcL (3.82-4.97); Red Cell Distribution Width 13.6 % (11.5-14.5); White Blood Count 11.8 K/mcL (4.3-11.1)
[2020-02-10] MEDS: *HR* Heparin 5,000 UNIT/ML VIAL SQ SCH ×2 (04:58→17:13)
[2020-02-10 05:57] LABS: Calcium 8.9 mg/dL (8.6-10.3); Potassium 4.2 mEq/L (3.5-5.1)
[2020-02-10] MEDS: Furosemide 20 MG/2 ML VIAL IVP SCH (07:57)
[2020-02-10] MEDS ORDERED: CeFAZolin Syr 2,000MG/20 ML 2,000 MG/20 ML SYRINGE IVPB ONE (09:37)
[2020-02-10] MEDS ORDERED: 0.9 % Sodium Chloride 500 ML ONE (11:32)
[2020-02-10] MEDS ORDERED: 0.9 % Sodium Chloride 1,000 ML ONE (11:32)
[2020-02-10] MEDS ORDERED: Water for inj. (sterile) 10 ML ONE (11:32)
[2020-02-10] MEDS ORDERED: *HR* FentaNYL (PF) 100 MCG/2 ML VIAL ONE (11:56)
[2020-02-10] MEDS ORDERED: *HR* Midazolam HCl 2 MG/2 ML VIAL ONE (11:56)
[2020-02-10] MEDS ORDERED: Acetaminophen 325 MG TABLET PO PRN (13:10)
[2020-02-10] MEDS ORDERED: *HR* OxyCODONE Immed Rel 5 MG TABLET PO PRN (13:10)
[2020-02-10] MEDS: amLODIPine 5 MG TABLET PO SCH (17:12)
[2020-02-10] MEDS: CeFAZolin 2 GM/120 ML BAG IVPB SCH (19:59)
[2020-02-11] MEDS: CeFAZolin 2 GM/120 ML BAG IVPB SCH (04:05)
[2020-02-11 04:43] LABS: Basophils # 0.1 K/mcL (0.0-0.2); Basophils % 0.5 %; Eosinophils # 0.5 K/mcL (0.0-0.6); Eosinophils % 4.9 %; Hematocrit 34.4 % (35.3-44.9); Hemoglobin 11.5 g/dL (11.5-15.4); Immature Granulocytes % 0.2 % (0-4); Lymphocytes # 0.9 K/mcL (0.6-4.6); Mean Corpuscular HGB Conc 33.4 g/dL (31.6-35.5); Mean Corpuscular Hemoglobin 29.6 pg (28.0-33.3); Mean Corpuscular Volume 88.7 fL (83.0-100.0); Mean Platelet Volume 10.6 fL (9.4-12.4); Monocytes # 1.3 K/mcL (0.0-1.3); Monocytes % 13.6 %; Platelet Count 212 K/mcL (140-400); Red Blood Count 3.88 M/mcL (3.82-4.97); Red Cell Distribution Width 13.4 % (11.5-14.5); Segmented Neutrophils % 71.8 %; White Blood Count 9.7 K/mcL (4.3-11.1)
[2020-02-11 05:02] LABS: Calcium 8.6 mg/dL (8.6-10.3); Potassium 3.4 mEq/L (3.5-5.1)
[2020-02-11] MEDS: *HR* Heparin 5,000 UNIT/ML VIAL SQ SCH ×2 (06:19→17:39)
[2020-02-11] MEDS: amLODIPine 5 MG TABLET PO SCH (07:46)
[2020-02-11] MEDS: Furosemide 20 MG/2 ML VIAL IVP SCH ×2 (07:46→17:39)
[2020-02-11] MEDS ORDERED: Potassium Chloride Elixir 20 MEQ/15 ML UDC PO ONE (09:22)
[2020-02-11] MEDS: carvediloL 6.25 MG TABLET PO SCH ×2 (12:54→17:39)
[2020-02-12 04:08] LABS: BUN/Creatinine Ratio 17 (6-26); Blood Urea Nitrogen 16 mg/dL (8-23); Calcium 8.7 mg/dL (8.6-10.3); Carbon Dioxide 27 mEq/L (23-29); Chloride 95 mEq/L (98-107); Glucose 107 mg/dL (70-105); Osmolality,Calculated 270 (280-300); Potassium 3.7 mEq/L (3.5-5.1); Sodium 129 mEq/L (136-145); eGFR For African Americans > 60 (> 60); eGFR For Non-African Americans 56 (> 60)
[2020-02-12] MEDS: *HR* Heparin 5,000 UNIT/ML VIAL SQ SCH (05:10)
[2020-02-12] MEDS: Furosemide 20 MG/2 ML VIAL IVP SCH (07:47)
[2020-02-12] MEDS: amLODIPine 5 MG TABLET PO SCH (07:47)
[2020-02-12] MEDS: carvediloL 6.25 MG TABLET PO SCH (07:47)
[2020-02-12 07:56] VITALS: BP 174/89
== END 2020-02-12 12:01 | disposition home health service (06) | DRG 242 ==
LOC: 2NNU 21:42 → EMEROOARM 21:42 → SUATTDRO 02-09 00:02 → 2NNU 02-09 02:48 → 2ANU 02-11 12:07
PROVIDERS: ADMIT Student in an Organized Health Care Education/Training Program; ATTEND Internal Medicine